=== PATIENT | female | born 1945 | race African-American/Black ===

== ENCOUNTER 2020-01-17 10:54 | Inpatient (IN) | payer MEDICARE, MEDICAID, SELFPAY ==
[2020-01-17] VITALS (90 sets, daily range): BP systolic 101–189; BP diastolic 60–119; PULSE 62–310; RESP 14–39; TEMP 37.4–37.9; O2SAT 82–98; BMI 22.7
--- NOTE | ~2020-01-17 | CT_ITS ---
EXAMINATION: CTA chest PE protocol DATE: 01/17/2020 17:29 INDICATION: Dyspnea. TECHNIQUE: Computed tomography angiography (CTA) of the chest was performed with 100 mL Omnipaque-350 intravenous contrast timed to evaluate the pulmonary arteries. Coronal maximum intensity projection 3D-reconstructions were created by the technologist. Automated exposure control and iterative reconst ruction technique were employed. The dose-length product was 348.81 mGy-cm. COMPARISON: Chest single view 01/17/20, CT abdomen and pelvis 08/24/2017 FINDINGS: There is mild emphysema. There are airspace and groundglass opacities in all lobes. No pleu ral effusion. Cardiomegaly is noted. There are coronary artery calcifications. No pericardial effusio n. There is no pulmonary embolus. There is a 4.6 x 4.1 cm right paratracheal mass. There are gallston es in the gallbladder. There is a moderate-sized sliding hiatal hernia. IMPRESSION: 1. No pulmonary embolus. 2. Diffuse lung disease, consistent with pneumonia. 3. Mild emphysema. 4. Cardiomegaly. 5. 4.6 x 4.1 cm right paratracheal mass. The differential diagnosis includes pathologically enlarged lymph node and bronchogenic cyst. Consider chest MRI without and with contrast. Reviewed, dictated and finalized at location A. R HOUSE CONTROL ROOM OPERATOR IMPRESSION: 1. No pulmonary embolus. 2. Diffuse lung disease, consistent with pneumonia. 3. Mild emphysema. 4. Cardiomegaly. 5. 4.6 x 4.1 cm right paratracheal mass. The differential diagnosis includes pa thologically enlarged lymph node and bronchogenic cyst. Consider chest MRI with out and with contrast.
--- NOTE | ~2020-01-17 | XR_ITS ---
EXAMINATION: XR chest 1V portable DATE: 01/17/2020 11:32 INDICATION: Dyspnea. Hypoxia. COVID 19 positive. TECHNIQUE: frontal view of the chest was obtained. COMPARISON: Chest radiograph dated 08/24/2017 FINDINGS: Patient is rotated towards the right. Diffuse the lateral groundglass and interstitial opacities of b oth lungs. No pleural effusion or pneumothorax. Cardiomegaly. IMPRESSION: 1. Diffuse bilateral lung disease with differential including pneumonia and pulmonary edema. 2. Cardiomegaly. Reviewed, dictated and finalized at location A. HER CRAFTSMAN IMPRESSION: 1. Diffuse bilateral lung disease with differential including pneumonia and pul monary edema. 2. Cardiomegaly.
--- NOTE | ~2020-01-17 | XR_ITS ---
EXAMINATION: XR chest 1V portable INDICATION: Respiratory failure TECHNIQUE: Portable AP chest at 0539 hours COMPARISON: 01/19/2020 FINDINGS: Diffuse opacities persist throughout all lung zones with interval improvement. No pleural e ffusion or pneumothorax is identified. There is stable cardiomegaly. IMPRESSION: 1. Diffuse lung disease with interval improvement, consistent with pneumonia and/or pulmonary edema a nd/or acute respiratory distress syndrome (ARDS). Reviewed, dictated and finalized at location A. D CASE MANAGER IMPRESSION: 1. Diffuse lung disease with interval improvement, consistent with pneumonia an d/or pulmonary edema and/or acute respiratory distress syndrome (ARDS).
--- NOTE | ~2020-01-17 | XR_ITS ---
EXAMINATION: XR chest 1V portable INDICATION: Respiratory failure TECHNIQUE: Portable AP chest at 0540 hours COMPARISON: 01/17/2020 FINDINGS: There are diffuse opacities throughout all lung zones with interval worsening. Stable cardi omegaly is noted. There is no pleural effusion or pneumothorax. IMPRESSION: 1. Diffuse lung disease with interval worsening, consistent with pneumonia and/or pulmonary edema and /or acute respiratory distress syndrome (ARDS). Reviewed, dictated and finalized at location A. TROSLAG WELDING MACHINE OPERATOR IMPRESSION: 1. Diffuse lung disease with interval worsening, consistent with pneumonia and/ or pulmonary edema and/or acute respiratory distress syndrome (ARDS).
--- NOTE | 2020-01-17 10:56 | ECG_ITS ---
Measurements Intervals [place] Rate: 85 P: 41 [place]: 130 QRS: -29 QRSD: 70 T: 74 QT: 363 QTc: 433 Interpretive Statements SINUS RHYTHM VOLTAGE CRITERIA FOR LVH BORDERLINE ST ABNORMALITY- LATERAL LEADS BASELINE ARTIFACT- I, II, III, AVR, AVL, AVF, V1-V6 BORDERLINE ECG Electronically Signed On 01-17-2020 11:20:02 SHAKE MAKER by Ankush Stevens D.O.
--- NOTE | 2020-01-17 11:19 | ED.GENADULT ---
HPI - General Adult General Chief complaint: Weakness Stated complaint: LETHARGY/COVID + Source: RN notes reviewed History of Present Illness HPI narrative: Patient presents emergency department from [facility] via EMS for hypoxia. Patient was diagnosed with COVID-19 on 01/09/2020. Staff noted today that she was weaker today and when they obtained a pulse ox her O2 sats were in the 80 and she was placed on nasal cannula. Patient is currently on 4 L nasal cannula this time is when EMS arrived she was on 2 L nasal cannula and had an O2 saturation of 88%. Patient has been eating less per the staff. Patient is currently awake and alert x2 and denies any complaints at this time. She denies any chest pain abdominal pain nausea vomiting Related Data Allergies Allergy/AdvReac Type Severity Reaction Status Date / Time No Known Allergies Allergy Verified 08/24/17 11:20 Review of Systems Review of Systems: Narrative: Gen.: Denies fevers or chills ENT: Denies congestion Respiratory: See HPI CV: Denies chest pain or palpitations GI: Denies abdominal pain nausea, emesis or diarrhea Musculoskeletal: Denies back pain or muscle pain Neuro: Reports weakness Skin: Denies rash Except as documented, all other systems reviewed and negative [facility] Past Medical History Medical History Anemia Cataracts, bilateral CVA (cerebral vascular accident) Dementia Depression DM (diabetes mellitus) GERD (gastroesophageal reflux disease) H/O: HTN (hypertension) Hemiparesis Hemiplegia History of Botello's esophagus History of GI bleed History of melena Hx: UTI (urinary tract infection) Meningitis Osteomyelitis PVD (peripheral vascular disease) Renal disease Surgical History Surgical History (Updated 03/06/19 @ 21:55 by Skinny Marie) No history of previous surgery Social History Social History (Updated 01/17/20 @ 13:46 by Benny Molina DO) Smoking status: Never smoker Gender identity (if verbalized by the patient): Female Exam Narrative: Exam Narrative: APPEARANCE: No acute distress, nontoxic, resting in bed EYES: EOMI HEENT: Normocephalic, atraumatic, OMM RESPIRATORY: No respiratory distress crackles throughout the bilateral lung becerril no wheezing CARDIOVASCULAR: Regular rate and rhythm without murmurs rubs or gallops. ABDOMINAL: Soft, nontender, nondistended, no rebound or guarding MUSCULOSKELETAl: Moves all extremities. No clubbing, cyanosis or edema. NEURO: Awake and alert x 2. Following commands, speech normal, no focal deficits SKIN:: Warm, dry. No rashes lesions or abrasions PSYCHIATRIC: Normal affect/mood, Course Course Emergency Course: Discussed with AURELIO Conroy for Dr. Ortega presentation work-up. Agrees with admission at this time Discussed with patient and family results of workup and diagnosis. Discussed need for admission. Patient and family understand and agree to current treatment plan Vital Signs Vital signs: Vital Signs Temperature 100.3 F H 01/17/20 10:57 Pulse Rate 85 01/17/20 10:57 Respiratory Rate 24 H 01/17/20 10:57 Blood Pressure 172/79 H 01/17/20 10:57 Pulse Oximetry 96 01/17/20 10:57 Temperature 100.3 F H 01/17/20 10:57 Pulse Rate 85 01/17/20 10:57 Respiratory Rate 24 H 01/17/20 10:57 Blood Pressure 172/79 H 01/17/20 10:57 Pulse Oximetry 96 01/17/20 10:57 Medical Decision Making Vital Signs Vital Signs: Vital Signs Temperature 100.3 F H 01/17/20 10:57 Pulse Rate 85 01/17/20 10:57 Respiratory Rate 24 H 01/17/20 10:57 Blood Pressure 172/79 H 01/17/20 10:57 Pulse Oximetry 96 01/17/20 10:57 Temperature 100.3 F H 01/17/20 10:57 Pulse Rate 85 01/17/20 10:57 Respiratory Rate 24 H 01/17/20 10:57 Blood Pressure 172/79 H 01/17/20 10:57 Pulse Oximetry 96 01/17/20 10:57 Lab Data Result diagrams: 01/17/20 12:27 01/17/20 12:27 Labs: Lab Results
[2020-01-17 11:38] LABS: Add Urine Microscopic? YES; Appearance Urine Cloudy (Clear); Bacteria Urine 4+ /hpf; Bilirubin Urine Negative (Negative); Blood Urine 2+ (Negative); Color Urine Yellow (Yellow); Glucose Urine UA Negative (Negative); Ketones Urine Trace mg/dL (Negative); Leukocyte Esterase Ur Negative LEU/UL (Negative); Mucus Urine Few /lpf; Nitrate Urine Positive (Negative); Protein Urine 3+ mg/dL (Negative); Specific Grav Ur 1.023 (1.001-1.035); Squamous Epithelial Cell Urine Many /hpf (Few); Urobilinogen Urine Negative mg/dL (<2.0); WBC Urine 0-3 /hpf
[2020-01-17 12:43] LABS: Hemoglobin 13.3 g/dL (12.0-15.0); Immature Granulocyte Absolute 0.04 K/mm3 (0.00-0.031); Immature Granulocyte Percent A 0.5 % (0-0.5); Immature Platelet Fraction Pct 12.3 % (0.9-11.2); Lymphocytes Absolute Auto 0.75 K/mm3 (0.9-3.2); Mean Corpuscular HGB Conc 31.7 g/dl (32-36); Mean Corpuscular Hemoglobin 27.8 pg (26-34); Mean Corpuscular Volume 87.9 fl (80-100); Mean Platelet Volume 13.5 fl (7.4-10.4); Monocytes Absolute Auto 0.4 K/mm3 (0.1-0.6); Monocytes Percent Auto 5.7 % (2.6-8.5); Neutrophils Absolute Auto 6.3 K/mm3 (1.3-6.7); Neutrophils Percent Auto 83.8 % (45.5-73.1); Platelet Count Result 128 k/mm3 (150-375); Red Blood Count 4.78 M/mm3 (4.2-5.4); White Blood Count 7.5 K/mm3 (4.5-10.0)
[2020-01-17 12:50] LABS: Lactic Acid Reflex 1.3 mmol/L (0.7-2.1)
[2020-01-17 12:51] LABS: Alanine Aminotransferase 25 U/L (4-35); Albumin Level 3.4 g/dL (3.5-5.1); Alkaline Phosphatase 97 U/L (38-126); Anion Gap 5 mmol/L (8-16); Aspartate Amino Transferase 65 U/L (14-36); Bilirubin,Total 0.4 mg/dL (0.2-1.3); Blood Urea Nitrogen 23 mg/dL (7-17); Carbon Dioxide 31 mmol/L (22-30); Chloride 111 mmol/L (98-107); Estimated CRCL calculation 39 ml/min; Estimated Glomerular Filt Rate > 60; Glucose 139 mg/dL (65-105); Potassium 4.1 mmol/L (3.4-5.0); Sodium 147 mmol/L (137-145)
[2020-01-17 12:53] LABS: INR 0.9; Prothrombin Time 13.1 Seconds (11.1-14.7)
[2020-01-17 12:54] LABS: Partial Thromboplastin Time 31.7 SECONDS (22.3-36.8)
[2020-01-17] MEDS: DEXAMETHASONE SOD PHOS INJ 4 MG/ML VIAL 6 MG IV PUSH (13:48)
--- NOTE | 2020-01-17 16:10 | ECG_ITS ---
Measurements Intervals [place] Rate: 151 P: [place]: 0 QRS: -26 QRSD: 75 T: 135 QT: 248 QTc: 394 Interpretive Statements ATRIAL FIBRILLATION WITH RAPID VENTRICULAR RESPONSE VENTRICULAR PREMATURE COMPLEXES ST-T WAVE ABNORMALITY IN HIGH LATERAL LEADS- CONSIDER ISCHEMIA BASELINE ARTIFACT- II, V2 ABNORMAL ECG Electronically Signed On 01-17-2020 17:48:14 ASTHMA EDUCATOR by Ankush Stevens D.O.
[2020-01-17] MEDS: dilTIAZem HCl INJ 25 MG/5 ML VIAL 5 MG IV PUSH (16:23)
--- NOTE | 2020-01-17 16:53 | PC.NURSE ---
1615 monitor tech showed HR in 140-160s ERP notified. Second EKG ordered. EKG showed Atrial fibrilation with RVR. EDP ordered 5mg of diltiazem IVP and 5mg/hr Diltiazem Drip via verbal order readback. After administration of diltiazem Pt. blood pressure dropped into the low 100s systolic. Per EDP via verbal order readback give a 1L bolus of normal saline. Pt. O2 saturations began to decline into the 80s. Pt. O2 was bumped into 5L via nasal cannula with saturations increasing to 89%. EDP ordered high-flow O2 via nasal cannula.
[2020-01-17] MEDS: SODIUM CHLORIDE 0.9% IV 1,000 ML 999 ML IV CONT (16:57)
[2020-01-17 17:00] LABS: Alveolar/Arterial O2 Gradient 212.7 mmHg; Base Excess ABG -1.1 mEq/l (+/-2.0); Fractional Inspired Oxygen 44 %; HCO3 ABG 23.1 mEq/l (22.0-26.0); Oxygen Content ABG 16.6 %vol (16.0-22.0); Oxygen Saturation ABG 90.9 % (95.0-100.0); Oxyhemoglobin 89.6 % THb (90.0-100.0); PCO2 ABG 37.1 mmHg (35.0-45.0); PO2 ABG 58.7 mmHg (80.0-100.0); PO2 FiO2 Ratio Arterial Blood 1.33 %; Total Hemoglobin 13.2 g/dL (12.0-18.0); pH ABG 7.413 (7.350-7.450)
[2020-01-17 17:01] LABS: Device NASAL CANNULA; Modified Allen's Test Unable to perform; Site Drawn LEFT RADIAL
[2020-01-17 18:11] LABS: Troponin I 0.064 ng/mL (0.000-0.034)
[2020-01-17] MEDS: AMIODARONE 150 MG/D5W 100 ML 150 MG/100 ML BAG 600 MG IV CONT (18:32)
[2020-01-17] MEDS: AMIODARONE 360 MG/D5W 200 ML 360 MG/200 ML BAG 33.33 MG IV CONT ×2 (18:52→23:54)
--- NOTE | 2020-01-17 19:05 | ADMGEN ---
This patient, Maritza Parson, was admitted to Intensive Care Unit-3. Patient/family oriented to hospital policies and general routines including ID bracelet, bed and alarms, visiting hours, pain management, procedures, bathroom and other care routines, personal items, smoking policy, room service/diet, and visiting hours. Information on how to activate the Rapid Response Team has been discussed. Patient/Family are encouraged to report perceived risks to care and to ask questions if they do not understand what they are told or what they should do.
--- NOTE | 2020-01-17 19:14 | PM.IMHP ---
H&P: HPI History of Present Illness Date/Time: 01/17/20 19:14 Chief complaint: acute respiratory failure with hypoxia,covid +,uti Narrative: Maritza Parson is a 74 year old female from residential with past medical history of dementia, history of CVA affecting right-sided body, dysphagia, type 2 diabetes, hypertension, CAD with recent diagnosis of COVID-19 on 01/09/2020 presents to ED brought in by EMS for hypoxia. she was found to have O2 saturation 80%. the residential she has has many cases of COVID-19. EMS had her on 2 L oxygen with saturation 88%, increased to 4 L in the ED. patient is unable to communicate she just mumbles , unclear baseline however she has diagnosis of dementia. In the ED: patient oxygen requirements went up to 4 L nasal cannula and patient was admitted for COVID-19 pneumonia. Patient developed AFib with RVR rate 151 While in the ER was given Cardizem drip and switched to IMU bed. Her heart rate continued to be elevated while on Cardizem and Cardiology Dr. Buenrostro was consulted to switch to amiodarone. Review of Systems Review of Systems: ROS unobtainable: Yes unobtainable due to medical condition and unobtainable due to mental status PMFSH Past Medical History Medical History Anemia Cataracts, bilateral CVA (cerebral vascular accident) Dementia Depression DM (diabetes mellitus) GERD (gastroesophageal reflux disease) H/O: HTN (hypertension) Hemiparesis Hemiplegia History of Botello's esophagus History of GI bleed History of melena Hx: UTI (urinary tract infection) Meningitis Osteomyelitis PVD (peripheral vascular disease) Renal disease Surgical History Surgical History No history of previous surgery Social History Social History Smoking status: Never smoker Alcohol intake: never Substance use: never Gender identity (if verbalized by the patient): Female Spiritual care concerns: No Meds Home Medications and Allergies Home Medications Medication Instructions Recorded Confirmed Type acetaminophen 650 mg PO Q4H PRN 01/17/20 01/17/20 History calcium carbonate-vitamin D3 1 tablet PO BID 01/17/20 01/17/20 History [Calcium 600 + D(3)] ferrous sulfate [iron] 325 mg PO BID 01/17/20 01/17/20 History hyoscyamine 0.125 mg PO Q4H PRN 01/17/20 01/17/20 History insulin glargine [Lantus U-100 20 unit SUBCUT HS 01/17/20 01/17/20 History Insulin] linagliptin [Tradjenta] 5 mg PO DAILY 01/17/20 01/17/20 History memantine 28 mg PO HS 01/17/20 01/17/20 History metformin 500 mg PO DAILY 01/17/20 01/17/20 History multivitamin with minerals 1 cap PO DAILY 01/17/20 01/17/20 History [Multi-Vitamin W/Minerals] ondansetron HCl [Zofran] 4 mg PO Q6H PRN 01/17/20 01/17/20 History oseltamivir 75 mg PO DAILY PRN 01/17/20 01/17/20 History pantoprazole 40 mg PO Q12H 01/17/20 01/17/20 History rivastigmine tartrate 4.5 mg PO Q12H 01/17/20 01/17/20 History senna-docusate sodium [Senna Plus 2 tablet PO Q12H 01/17/20 01/17/20 History (senna-docusate)] Allergies Allergy/AdvReac Type Severity Reaction Status Date / Time No Known Allergies Allergy Verified 08/24/17 11:20 Vital Signs Vital Signs - 24 hr 01/17/20 10:50 01/17/20 10:57 01/17/20 11:03 Temperature 37.9 C H Pulse Rate 85 85 Respiratory Rate 24 H 14 Blood Pressure 172/79 H Pulse Oximetry 98 96 96 01/17/20 11:04 01/17/20 11:15 01/17/20 11:16 Temperature Pulse Rate 84 93 Respiratory Rate 20 20 20 Blood Pressure 172/79 H 179/81 H Pulse Oximetry 96 94 96 01/17/20 11:30 01/17/20 11:31 01/17/20 11:48 Temperature Pulse Rate 84 82 82 Respiratory Rate 21 H 23 H 22 H Blood Pressure 189/81 H 178/82 H Pulse Oximetry 96 97 01/17/20 11:49 01/17/20 12:00 01/17/20 12:01 Temperature Pulse Rate 81 82 80 Respiratory Ra
--- NOTE | 2020-01-17 19:24 | PC.NURSE ---
This patient, Maritza Parson, was admitted to Intensive Care Unit-3. Patient/family oriented to hospital policies and general routines including ID bracelet, bed and alarms, visiting hours, pain management, procedures, bathroom and other care routines, personal items, smoking policy, room service/diet, and visiting hours. Information on how to activate the Rapid Response Team has been discussed. Patient/Family are encouraged to report perceived risks to care and to ask questions if they do not understand what they are told or what they should do. Report received from CASSIE Coto @ [id number]
[2020-01-17 20:43] LABS: Base Excess ABG -3.4 mEq/l (+/-2.0); Carboxyhemoglobin 0.3 % THb (0-2.0); Fractional Inspired Oxygen 100 %; HCO3 ABG 20.8 mEq/l (22.0-26.0); Methemoglobin ABG 0.4 %THb (0-1.5); Oxygen Content ABG 17.2 %vol (16.0-22.0); Oxygen Saturation ABG 92.8 % (95.0-100.0); Oxyhemoglobin 91.2 % THb (90.0-100.0); PCO2 ABG 35.1 mmHg (35.0-45.0); PO2 ABG 64.9 mmHg (80.0-100.0); PO2 FiO2 Ratio Arterial Blood 0.65 %; Reduced Hemoglobin 8.1 %THb (0-5.0); Total Hemoglobin 13.4 g/dL (12.0-18.0); pH ABG 7.391 (7.350-7.450)
[2020-01-17 20:44] LABS: Site Drawn LEFT RADIAL
[2020-01-17 20:45] LABS: Device HIGH FLOW THERAPY; Modified Allen's Test Pass
[2020-01-17 23:42] LABS: NT Pro B Type Natriuretic Pept 1860 PG/ML (5-100); Troponin I 0.822 ng/mL (0.000-0.034)
[2020-01-18] VITALS (27 sets, daily range): BP systolic 111–179; BP diastolic 64–115; PULSE 90–135; RESP 18–47; TEMP 36.1–36.7; O2SAT 27–97; BMI 22.7
[2020-01-18] MEDS: REMDESIVIR 200 MG/NS 250 ML 200 MG/250 ML BAG 250 MG IVPB (00:52)
[2020-01-18 04:43] LABS: Basophils Percent Auto 0.1 % (0.2-1.2); Hematocrit 42.2 % (37.0-47.0); Hemoglobin 13.5 g/dL (12.0-15.0); Immature Granulocyte Absolute 0.03 K/mm3 (0.00-0.031); Immature Granulocyte Percent A 0.4 % (0-0.5); Lymphocytes Absolute Auto 0.72 K/mm3 (0.9-3.2); Lymphocytes Percent Auto 9.6 % (18.3-44.2); Mean Corpuscular Hemoglobin 28.1 pg (26-34); Mean Corpuscular Volume 87.9 fl (80-100); Mean Platelet Volume 13.3 fl (7.4-10.4); Monocytes Absolute Auto 0.3 K/mm3 (0.1-0.6); Monocytes Percent Auto 4.3 % (2.6-8.5); Neutrophils Absolute Auto 6.4 K/mm3 (1.3-6.7); Neutrophils Percent Auto 85.6 % (45.5-73.1); Platelet Count Result 148 k/mm3 (150-375); Red Cell Distribution Width 15.2 % (11.5-14.5); White Blood Count 7.5 K/mm3 (4.5-10.0)
[2020-01-18 04:55] LABS: Alanine Aminotransferase 22 U/L (4-35); Anion Gap 9 mmol/L (8-16); Blood Urea Nitrogen 19 mg/dL (7-17); CRP 8.6 mg/dL (<1.0); Calcium 8.4 mg/dL (8.4-10.2); Carbon Dioxide 25 mmol/L (22-30); Chloride 112 mmol/L (98-107); Estimated CRCL calculation 35 ml/min; Estimated Glomerular Filt Rate > 60; Glucose 328 mg/dL (65-105); Lactate Dehydrogenase 1278 U/L (313-618); Potassium 3.9 mmol/L (3.4-5.0); Sodium 146 mmol/L (137-145)
[2020-01-18 05:01] LABS: Hemoglobin A1C 6.5 % (<5.7)
[2020-01-18] MEDS: AMIODARONE 360 MG/D5W 200 ML 360 MG/200 ML BAG 33.33 MG IV CONT ×3 (06:00→23:30)
[2020-01-18] MEDS: INSULIN ASPART (*BKC) 100 UNITS/ML SUB-Q ×4 (06:01→23:28)
[2020-01-18] MEDS: ALBUTEROL SULFATE (*SP) AEROSOL 1 PUFF 2 PUFF INHALATION (08:20)
[2020-01-18] MEDS: PANTOPRAZOLE SODIUM IV 40 MG VIAL IV PUSH (08:58)
[2020-01-18] MEDS: ENOXAPARIN 60 MG/0.6 ML SYRINGE SUB-Q ×2 (08:58→20:08)
[2020-01-18] MEDS: DEXAMETHASONE SOD PHOS INJ 4 MG/ML VIAL 6 MG IV PUSH (09:11)
[2020-01-18] MEDS: FUROSEMIDE INJ 40 MG/4 ML VIAL IV PUSH (09:11)
--- NOTE | 2020-01-18 10:00 | PM.CNCAR ---
Assessment and Plan Assessment and plan (1) COVID-19: Code(s): U07.1 - COVID-19 Status: Acute Assessment and Plan: Per ICU team (2) Acute respiratory failure with hypoxia: Code(s): J96.01 - Acute respiratory failure with hypoxia Status: Acute Assessment and Plan: Secondary Coronavirus (3) Atrial fibrillation with RVR: Code(s): I48.91 - Unspecified atrial fibrillation Status: Acute Assessment and Plan: Continue amiodarone drip. Metoprolol 5 mg IV x1 and p.r.n. q.4 hours as needed. She is on full-dose enoxaparin which I also agree with for now 2D echocardiogram Doppler (4) Dementia: Code(s): F03.90 - Unspecified dementia without behavioral disturbance Status: Acute History of Present Illness History of Present Illness Consult date/time: 01/18/20 10:00 Requesting physician: Benny Molina DO Consult reason: atrial fibrillation Reason For Visit: acute respiratory failure with hypoxia,covid +,uti Narrative: Date of service: 01/18/2020 Reason for consultation: Atrial fibrillation History patient is a 74-[facility]-old female [facility] who has a history of stroke, dementia, dysphagia, hypertension with diabetes, CAD and was diagnosed with Coronavirus on 01/09/2020. She presents to the hospital because of hypoxia with O2 saturations of 80%. While in the emergency room she went into atrial fibrillation with rapid ventricular response. She was started on diltiazem at 1st and is now on amiodarone. Heart rate is between 101 120. She remains dyspneic but not intubated to this point. Review of Systems Review of Systems: All systems reviewed & are unremarkable except as noted in HPI and below Constitutional: Constitutional: Reports weakness ENT: Denies epistaxis Cardiovascular: Cardiovascular: Denies chest pain Respiratory: Respiratory: Reports dyspnea Gastrointestinal: Gastrointestinal: Denies vomiting Hematologic/Lymphatic: Hematologic/Lymphatic: Denies easy bleeding PMFSH Past Medical History Medical History Anemia Cataracts, bilateral CVA (cerebral vascular accident) Dementia Depression DM (diabetes mellitus) GERD (gastroesophageal reflux disease) H/O: HTN (hypertension) Hemiparesis Hemiplegia History of Botello's esophagus History of GI bleed History of melena Hx: UTI (urinary tract infection) Meningitis Osteomyelitis PVD (peripheral vascular disease) Renal disease Surgical History Surgical History No history of previous surgery Social History Social History Smoking status: Never smoker Alcohol intake: never Substance use: never Gender identity (if verbalized by the patient): Female Spiritual care concerns: No Meds Home Medications and Allergies Home Medications Medication Instructions Recorded Confirmed Type acetaminophen 650 mg PO Q4H PRN 01/17/20 01/17/20 History calcium carbonate-vitamin D3 1 tablet PO BID 01/17/20 01/17/20 History [Calcium 600 + D(3)] ferrous sulfate [iron] 325 mg PO BID 01/17/20 01/17/20 History hyoscyamine 0.125 mg PO Q4H PRN 01/17/20 01/17/20 History insulin glargine [Lantus U-100 20 unit SUBCUT HS 01/17/20 01/17/20 History Insulin] linagliptin [Tradjenta] 5 mg PO DAILY 01/17/20 01/17/20 History memantine 28 mg PO HS 01/17/20 01/17/20 History metformin 500 mg PO DAILY 01/17/20 01/17/20 History multivitamin with minerals 1 cap PO DAILY 01/17/20 01/17/20 History [Multi-Vitamin W/Minerals] ondansetron HCl [Zofran] 4 mg PO Q6H PRN 01/17/20 01/17/20 History oseltamivir 75 mg PO DAILY PRN 01/17/20 01/17/20 History pantoprazole 40 mg PO Q12H 01/17/20 01/17/20 History rivastigmine tartrate 4.5 mg PO Q12H 01/17/20 01/17/20 History senna-docusate sodium [Senna Plus 2 tablet PO Q12H 01/17/20 01/17/20 Histo
--- NOTE | 2020-01-18 10:40 | WPDCNINT ---
Assessment and Plan Assessment and plan (1) Acute respiratory failure with hypoxia: Code(s): J96.01 - Acute respiratory failure with hypoxia Status: Acute Assessment and Plan: Acute Respiratory failure secondary to COVID-19 pneumonia, ? pulmonary edema - SARS-CoV-2 PCR positive Patient is in Airborne, Droplet and Contact Isolation On dexamethasone, remdesivir 1 unit convalscent plasma 01/17 Lasix IV after plasma Continue antibiotics for empiric bacterial coverage monitor inflammatory markers bronchodilators CTA Chest IMPRESSION: 1. No pulmonary embolus. 2. Diffuse lung disease, consistent with pneumonia. 3. Mild emphysema. 4. Cardiomegaly. 5. 4.6 x 4.1 cm right paratracheal mass. The differential diagnosis includes pathologically enlarged lymph node and bronchogenic cyst. Consider chest MRI without and with contrast. (2) COVID-19: Code(s): U07.1 - COVID-19 Status: Acute Assessment and Plan: see above (3) Atrial fibrillation with RVR: Code(s): I48.91 - Unspecified atrial fibrillation Status: Acute Assessment and Plan: Continue amiodarone drip. 2D echocardiogram Doppler added p.r.n. Lopressor patient seen by Cardio (4) Dementia: Code(s): F03.90 - Unspecified dementia without behavioral disturbance Status: Acute Assessment and Plan: Namenda on hold at this time (5) DM (diabetes mellitus): Code(s): E11.9 - Type 2 diabetes mellitus without complications Status: Acute Assessment and Plan: sliding scale (6) NSTEMI (non-ST elevated myocardial infarction): Code(s): I21.4 - Non-ST elevation (NSTEMI) myocardial infarction Status: Acute Assessment and Plan: type 2 non STEMI secondary to respiratory failure and atrial fibrillation with RVR patient seen by Cardiology echo on Lovenox add aspirin Additional Plan Diet: NPO, speech eval DVT prophylaxis: Lovenox 40 mg b.i.d. GI prophylaxis: Protonix IV Code status: Full code, I called patient's POA who is her son Scout Lim. I left a voicemail on his phone. Total Critical Care Time - 35 minutes Due to a high probability of clinically significant, life threatening deterioration, the patient required my highest level of preparedness to intervene emergently and I personally spent this critical care time directly and personally managing the patient. This critical care time included obtaining a history; examining the patient; pulse oximetry; ordering and review of studies; arranging urgent treatment with development of a management plan; evaluation of patient's response to treatment; frequent reassessment; and discussions with other providers. It was exclusive of separately billable procedures and treating other patients and teaching time. Please see Assessment and Plan section and the rest of the note for further information on patient assessment and treatment Motel Keeper Consult Note Consult date: 01/18/20 Time Seen: 08:00 HPI: Maritza Parson is a 74 [facility] old female from [facility] with past medical history of dementia, history of CVA affecting right-sided body, dysphagia, type 2 diabetes, hypertension, CAD with recent diagnosis of COVID-19 on 01/09/2020 presents to ED brought in by EMS for hypoxia. she was found to have O2 saturation 80%. the [facility] she has has many cases of COVID-19. patient was unable to provide any meaningful history due to her dementia. Was found to be in AFib with RVR. Started on Cardizem infusion but it did not hence after cardiology consultation she was switched to amiodarone. over the course of her ER stay her hypoxia worsened and she required high-flow nasal cannula. Admitted to ICU for further evaluation management this morning patient continues to be on high-flow nasal cannula along with a non-rebreather mask. She is on 60 L flow and 100% FiO2 on the high-flow. Her nasal cannula keeps on coming out and pa
[2020-01-18] MEDS: METOPROLOL TARTRATE INJ 5 MG/5 ML VIAL IV PUSH ×2 (11:47→20:32)
[2020-01-18 12:25] LABS: Glucose Point of Care 237 (65-105)
--- NOTE | 2020-01-18 13:23 | PC.NURSE ---
Spoke to patients sharron Butterfield who states he wishes for patient to be a DNR/DNI at this time, MD Caldera made aware.
--- NOTE | 2020-01-18 13:26 | PCSTNOTE ---
Please refer to the Bedside Swallow Evaluation in the EMR. Please note, silent aspiration cannot be ruled out at bedside.
--- NOTE | 2020-01-18 13:43 | PM.EVENT ---
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 For discussing with physicians there and respiratory therapist and doing video call with patient with assistance of a nurse, he has requested the patient be made DNR DNI and not be intubated for respiratory failure or CPR performed in case of cardiac arrest.
--- NOTE | 2020-01-18 14:17 | PM.IMPN ---
Progress Note: A&P Additional Plan 1COVID-19 pneumonia / Acute hypoxic respiratory failure - COVID-19 pneumonia causing significant hypoxia triggering AFib with RVR. - Code status was changed to DNR/DNI after a discussion by the critical care physician with the patient's son. - CTA negative for PE, consistent with diffuse lung disease COVID-19 - Starting remdesivir, dexamethasone, convalescent plasma - MDI albuterol scheduled - patient is in airvo 60 L will keep maxed out to see if that will help with the heart rate - goal keep O2 supplemental oxygen greater than 90% - continue amiodarone drip for AFib with RVR 2 elevated troponin - likely supply demand secondary to severe hypoxia from COVID-19 pneumonia. 3 dementia, history of CVA - history of dysphagia from CVA, patient is too critically ill to tolerate p.o. - patient also has significant dementia unable to follow commands - we will make NPO and have speech evaluate - patient is on rivastigmine, memantine 4 other chronic conditions -holding home meds while NPO - type 2 diabetes: Metformin, Tradjenta, Lantus - chronic anemia: Holding home ferrous sulfate Diet: NPO, speech eval DVT prophylaxis: Lovenox 40 mg b.i.d. GI prophylaxis: Protonix IV Code status: DNR/DNI Disposition: ICU, prognosis guarded Subjective Date/time seen: Tachypneic but not in severe distress, she denies pain. 01/18/20 14:17 Exam Narrative: Exam Narrative: General: Pt is old cachectic , alert and awake Lungs/Chest: Trachea central Clear BS B/L, No crackles or wheezing. tachypneic but no respiratory distress Cardiac: RRR. Normal S1 S2. No murmurs Abdomen: Normal bowel sounds.. Soft. NT. ND. Extremities: No clubbing, cyanosis or edema. Warm : Samaniego in place Neurologic: . Moves all 4 extremities , no obvious focal deficits , does not follow commands. Skin: No Rash Objective Data Vital Signs Vital Signs: Vital Signs - 24 hr 01/17/20 14:18 01/17/20 14:30 01/17/20 14:31 Temperature 99.3 F Pulse Rate 69 71 Respiratory Rate 23 H 25 H Blood Pressure 148/68 H Pulse Oximetry 97 97 01/17/20 14:45 01/17/20 14:46 01/17/20 14:47 Temperature Pulse Rate 74 74 73 Respiratory Rate 23 H 18 24 H Blood Pressure 148/68 H Pulse Oximetry 98 95 96 01/17/20 15:00 01/17/20 15:01 01/17/20 15:15 Temperature Pulse Rate 65 66 64 Respiratory Rate 23 H 23 H 22 H Blood Pressure 134/67 Pulse Oximetry 97 96 97 01/17/20 15:16 01/17/20 15:30 01/17/20 15:31 Temperature Pulse Rate 64 65 64 Respiratory Rate 22 H 25 H 22 H Blood Pressure 138/60 150/63 H Pulse Oximetry 98 97 98 01/17/20 15:32 01/17/20 15:45 01/17/20 15:46 Temperature Pulse Rate 64 62 63 Respiratory Rate 21 H 21 H 27 H Blood Pressure 140/63 Pulse Oximetry 98 96 97 01/17/20 16:00 01/17/20 16:01 01/17/20 16:15 Temperature Pulse Rate 63 66 156 H Respiratory Rate 24 H 25 H 32 H Blood Pressure 134/70 Pulse Oximetry 98 98 01/17/20 16:16 01/17/20 16:23 01/17/20 16:30 Temperature Pulse Rate 155 H 162 H 137 H Respiratory Rate 24 H 28 H Blood Pressure 158/90 H 158/90 H Pulse Oximetry 82 L 01/17/20 16:34 01/17/20 16:45 01/17/20 16:46 Temperature Pulse Rate 138 H 143 H 147 H Respiratory Rate 20 29 H 22 H Blood Pressure 101/76 117/87 Pulse Oximetry 83 L 91 91 01/17/20 16:50 01/17/20 17:00 01/17/20 17:01 Temperature Pulse Rate 105 H 148 H 141 H Respiratory Rate 24 H 29 H 23 H Blood Pressure 122/96 H Pulse Oximetry 91 86 L 01/17/20 17:04 01/17/20 17:33 01/17/20 17:34 Temperature Pulse Rate 144 H 146 H 149 H Respiratory Rate 24 H 27 H 29 H Blood Pressure 149/75 H Pulse Oximetry 93 90 94 01/17/20 17:45 01/17/20 17:46 01/17/20 17:53 Temperature Pulse Rate 149 H 139 H 150 H Respiratory Rate 39 H 28 H 28 H Blood Pressure 115/70 114/78 128/86 Pulse Oximetry 90 01/17/20 18:00 01/17/20 18:01 01/17/20 18:02 Temperature Puls
[2020-01-18] MEDS: ASPIRIN 300 MG SUPPOSITORY RECTAL (14:34)
[2020-01-18 17:38] LABS: Glucose Point of Care 230 (65-105)
[2020-01-18] MEDS: REMDESIVIR 100 MG/NS 250 ML 100 MG/250 ML BAG 250 MG IVPB (23:23)
[2020-01-18 23:48] LABS: Glucose Point of Care 223 (65-105)
[2020-01-19] VITALS (23 sets, daily range): BP systolic 122–177; BP diastolic 77–122; PULSE 94–126; RESP 27–45; TEMP 36.3–36.6; O2SAT 90–97
[2020-01-19] MEDS: AMIODARONE 360 MG/D5W 200 ML 360 MG/200 ML BAG 33.33 MG IV CONT (04:50)
[2020-01-19 05:34] LABS: Alanine Aminotransferase 20 U/L (4-35); Albumin Level 2.8 g/dL (3.5-5.1); Alkaline Phosphatase 105 U/L (38-126); Anion Gap 6 mmol/L (8-16); Aspartate Amino Transferase 53 U/L (14-36); Bilirubin,Total 0.3 mg/dL (0.2-1.3); Blood Urea Nitrogen 29 mg/dL (7-17); Calcium 8.6 mg/dL (8.4-10.2); Carbon Dioxide 28 mmol/L (22-30); Chloride 112 mmol/L (98-107); Estimated CRCL calculation 32 ml/min; Estimated Glomerular Filt Rate 59; Glucose 217 mg/dL (65-105); Lactate Dehydrogenase 1438 U/L (313-618); Magnesium 2.1 mg/dL (1.6-2.3); Potassium 3.5 mmol/L (3.4-5.0); Sodium 146 mmol/L (137-145)
[2020-01-19 05:42] LABS: NT Pro B Type Natriuretic Pept 7950 PG/ML (5-100)
[2020-01-19 05:43] LABS: Hematocrit 38.7 % (37.0-47.0); Hemoglobin 12.8 g/dL (12.0-15.0); Immature Platelet Fraction Pct 11.8 % (0.9-11.2); Mean Corpuscular HGB Conc 33.1 g/dl (32-36); Mean Corpuscular Hemoglobin 28.6 pg (26-34); Mean Corpuscular Volume 86.4 fl (80-100); Mean Platelet Volume 13.3 fl (7.4-10.4); Platelet Count Result 191 k/mm3 (150-375); Red Blood Count 4.48 M/mm3 (4.2-5.4); White Blood Count 9.9 K/mm3 (4.5-10.0)
[2020-01-19] MEDS: INSULIN ASPART (*BKC) 100 UNITS/ML SUB-Q ×4 (06:05→23:31)
[2020-01-19] MEDS: ASPIRIN 300 MG SUPPOSITORY RECTAL (07:43)
[2020-01-19] MEDS: PANTOPRAZOLE SODIUM IV 40 MG VIAL IV PUSH (07:43)
[2020-01-19] MEDS: ENOXAPARIN 60 MG/0.6 ML SYRINGE SUB-Q ×2 (07:43→21:08)
[2020-01-19] MEDS: DEXAMETHASONE SOD PHOS INJ 4 MG/ML VIAL 6 MG IV PUSH (07:44)
--- NOTE | 2020-01-19 10:57 | WPDINTPN ---
Progress Note: A&P Assessment and Plan (1) Acute respiratory failure with hypoxia: Code(s): J96.01 - Acute respiratory failure with hypoxia Status: Acute Assessment and Plan: Acute Respiratory failure secondary to COVID-19 pneumonia, ? pulmonary edema - SARS-CoV-2 PCR positive Patient is in Airborne, Droplet and Contact Isolation On dexamethasone, remdesivir 1 unit convalscent plasma 01/17 Lasix IV after plasma was given. patient's BNP is elevated but she appears to be intravascularly volume depleted hence will hold any Lasix at this time. will consider giving small amount of fluid to prevent dehydration Continue antibiotics for empiric bacterial coverage monitor inflammatory markers bronchodilators CTA Chest IMPRESSION: 1. No pulmonary embolus. 2. Diffuse lung disease, consistent with pneumonia. 3. Mild emphysema. 4. Cardiomegaly. 5. 4.6 x 4.1 cm right paratracheal mass. The differential diagnosis includes pathologically enlarged lymph node and bronchogenic cyst. Consider chest MRI without and with contrast. (2) COVID-19: Code(s): U07.1 - COVID-19 Status: Acute Assessment and Plan: see above (3) Atrial fibrillation with RVR: Code(s): I48.91 - Unspecified atrial fibrillation Status: Acute Assessment and Plan: Continue amiodarone drip Will decrease rate 2.5 2D echocardiogram Doppler is pending continue p.r.n. Lopressor patient seen by Cardio (4) Dementia: Code(s): F03.90 - Unspecified dementia without behavioral disturbance Status: Acute Assessment and Plan: Namenda on hold at this time (5) DM (diabetes mellitus): Code(s): E11.9 - Type 2 diabetes mellitus without complications Status: Acute Assessment and Plan: sliding scale (6) NSTEMI (non-ST elevated myocardial infarction): Code(s): I21.4 - Non-ST elevation (NSTEMI) myocardial infarction Status: Acute Assessment and Plan: type 2 non STEMI secondary to respiratory failure and atrial fibrillation with RVR patient seen by Cardiology echo pending on Lovenox continue aspirin Additional Plan Diet: NPO, repeat speech eval today as patient did not do well yesterday DVT prophylaxis: Lovenox 40 mg b.i.d. GI prophylaxis: Protonix IV Code status: patient is DNR DNI as per patient's POA who is her son Scout Lim. Total Critical Care Time - 30 minutes Due to a high probability of clinically significant, life threatening deterioration, the patient required my highest level of preparedness to intervene emergently and I personally spent this critical care time directly and personally managing the patient. This critical care time included obtaining a history; examining the patient; pulse oximetry; ordering and review of studies; arranging urgent treatment with development of a management plan; evaluation of patient's response to treatment; frequent reassessment; and discussions with other providers. It was exclusive of separately billable procedures and treating other patients and teaching time. Please see Assessment and Plan section and the rest of the note for further information on patient assessment and treatment Subjective Date/time seen: 01/19/20 10:57 Overnight events reviewed. Afebrile Continues to be on High-flow nasal cannula with 100% FiO2 and 60 L flow along with a non-rebreather mask she is awake but does not follow commands or answering questions. when stimulated she mumbles incoherent words Continues to be on amiodarone infusion Vitals acceptable Review of Systems Review of Systems: ROS unobtainable: Yes unobtainable due to medical condition Exam Narrative: Exam Narrative: General: Pt is old cachectic frail female who ist awake Lungs/Chest: Trachea central Clear BS B/L, No crackles or wheezing. tachypneic but no respiratory distress Cardiac: RRR. Normal S1 S2. No murmurs Circulation: Pedal pulses are intact
--- NOTE | 2020-01-19 10:57 | PCDIET ---
Nutrition Follow-Up Complete: Nutrition Diagnosis: Inadequate oral intake related to altered mental status as evidenced by NPO diet with [employer] consult. Nutrition Goal: Patient to meet estimated nutritional needs. Goal not met. [employer] recommended NPO on 01/18/20. MD re-consulted [employer] today. If unable to safely advance diet and aggressive nutritional therapy is desired, recommend the following: Glucerna 1.2 at goal of 50mL/hr x 22 hours/day for 1320kcal, 66g protein and 885mL free water. Suggest 30mL water flush every 4 hours. Last recorded weight is 57.1 kg which is decreased from last review. -I/O. Bowel Motility: No documented BM as of yet. Labs Reviewed: BUN (29), Cr (1.1), Na (146), Alb (2.8), Cl (112) Meds Noted: Rocephin, Albuterol, Protonix, Remdesivir, Decadron, Novolog Additional Notes: No documented skin breakdown. Will continue to monitor with same goal. Nutrition Monitoring and Evaluation: Follow up every 3 days.
--- NOTE | 2020-01-19 11:55 | PM.PNCARD ---
Progress Note: A&P Assessment and Plan (1) COVID-19: Code(s): U07.1 - COVID-19 Status: Acute Assessment and Plan: Per ICU team (2) Acute respiratory failure with hypoxia: Code(s): J96.01 - Acute respiratory failure with hypoxia Status: Acute Assessment and Plan: Secondary Coronavirus (3) Atrial fibrillation with RVR: Code(s): I48.91 - Unspecified atrial fibrillation Status: Acute Assessment and Plan: Continue amiodarone drip. p.r.n. IV metoprolol. She is on full-dose enoxaparin which I also agree with for now 2D echocardiogram Doppler is pending (4) Dementia: Code(s): F03.90 - Unspecified dementia without behavioral disturbance Status: Acute (5) NSTEMI (non-ST elevated myocardial infarction): Code(s): I21.4 - Non-ST elevation (NSTEMI) myocardial infarction Status: Acute Assessment and Plan: most likely Related to a type 2 infarction from underlying Coronavirus and atrial fibrillation with rapid ventricular response Subjective Date/time seen: 01/19/20 11:55 Interval history: 74-year-old admitted with respiratory failure, COVID positive. Atrial fibrillation noted in ER Date of service 01/19/2020: Remains in atrial fibrillation heart rate is better controlled. Heart rate is in the low 100s. Review of Systems Review of Systems: All systems reviewed & are unremarkable except as noted in HPI and below Constitutional: Constitutional: Reports weakness ENT: Denies epistaxis Cardiovascular: Cardiovascular: Denies chest pain and Reports dyspnea Respiratory: Respiratory: Reports dyspnea Gastrointestinal: Gastrointestinal: Denies vomiting Neurologic: Reports weakness Hematologic/Lymphatic: Hematologic/Lymphatic: Denies easy bleeding Exam Narrative: Exam Narrative: Patient has a non-rebreather on. Appears uncomfortable Const: General: in distress and uncomfortable HENMT: Other: Non-rebreather on face Resp: Other: Increased respiratory effort Cardio: Rate: tachycardic Rhythm: abnormal rhythm irregularly irregular Skin: General skin exam: normal color Objective Data Vital Signs Vital Signs: Vital Signs - 24 hr 01/18/20 12:00 01/18/20 12:21 01/18/20 14:00 Temperature Pulse Rate 109 H 90 105 H Respiratory Rate 28 H Blood Pressure 151/81 H 144/73 H Pulse Oximetry 96 01/18/20 15:45 01/18/20 16:00 01/18/20 18:00 Temperature 36.7 C Pulse Rate 107 H 109 H 106 H Respiratory Rate 41 H 31 H 37 H Blood Pressure 142/84 H 165/86 H Pulse Oximetry 93 94 95 01/18/20 20:00 01/18/20 20:01 01/18/20 20:32 Temperature 36.4 C L Pulse Rate 134 H 121 H 130 H Respiratory Rate 27 H 27 H Blood Pressure 166/115 H Pulse Oximetry 27 L 97 01/18/20 20:39 01/18/20 22:00 01/18/20 23:30 Temperature Pulse Rate 110 H 110 H 115 H Respiratory Rate 39 H 32 H Blood Pressure 158/91 H 143/94 H Pulse Oximetry 95 97 01/18/20 23:40 01/19/20 00:00 01/19/20 02:00 Temperature 36.6 C Pulse Rate 115 H 109 H 105 H Respiratory Rate 32 H 35 H 32 H Blood Pressure 150/80 H 139/86 Pulse Oximetry 97 94 96 01/19/20 03:26 01/19/20 04:00 01/19/20 04:50 Temperature 36.5 C Pulse Rate 104 H 100 114 H Respiratory Rate 33 H 36 H Blood Pressure 151/82 H 173/94 H Pulse Oximetry 94 93 01/19/20 06:00 01/19/20 07:44 01/19/20 07:51 Temperature Pulse Rate 114 H 111 H 112 H Respiratory Rate 32 H 34 H Blood Pressure 122/85 157/98 H Pulse Oximetry 91 93 01/19/20 08:00 01/19/20 09:57 01/19/20 10:00 Temperature 36.4 C Pulse Rate 110 H 104 H 113 H Respiratory Rate 38 H 37 H Blood Pressure 144/88 H 152/94 H Pulse Oximetry 91 90 01/19/20 11:30 Temperature Pulse Rate 117 H Respiratory Rate 45 H Blood Pressure Pulse Oximetry 95 Intake/Output Intake/Output: Intake & Output 01/16/20 01/17/20 01/18/20 01/19/20 23:59 23:59 23:59 23:59 Intake Total 1262 520 250 Output
--- NOTE | 2020-01-19 12:02 | PCSTNOTE ---
Please refer to the bedside swallow evaluation in the EMR.
[2020-01-19] MEDS: METOPROLOL TARTRATE INJ 5 MG/5 ML VIAL IV PUSH ×2 (12:14→18:08)
[2020-01-19 12:52] LABS: Glucose Point of Care 252 (65-105)
[2020-01-19] MEDS: DEXTROSE 5% IN WATER 500 ML 50 ML IV CONT (13:41)
[2020-01-19] MEDS: AMIODARONE 360 MG/D5W 200 ML 360 MG/200 ML BAG 16.67 MG IV CONT (13:45)
--- NOTE | 2020-01-19 15:52 | PM.IMPN ---
Progress Note: A&P Additional Plan 1. COVID-19 pneumonia / Acute hypoxic respiratory failure - COVID-19 pneumonia causing significant hypoxia triggering AFib with RVR. - Code status was changed to DNR/DNI after a discussion by the critical care physician with the patient's son. - CTA negative for PE, consistent with diffuse lung disease COVID-19 - Started on remdesivir, dexamethasone, convalescent plasma, received laisx after plasma. - On empiric antibiotics for possible concomitant PNA. 2 elevated troponin - likely supply demand secondary to severe hypoxia from COVID-19 pneumonia. 3 dementia, history of CVA - history of dysphagia from CVA and dementia. - patient also has significant dementia unable to follow commands 4 other chronic conditions -holding home meds while NPO - type 2 diabetes: Metformin, Tradjenta, Lantus - chronic anemia: Holding home ferrous sulfate DVT prophylaxis: Lovenox 40 mg b.i.d. GI prophylaxis: Protonix IV Code status: DNR/DNI Disposition: ICU, prognosis guarded Subjective Date/time seen: No new complains, she seems confused and still dyspneic. 01/19/20 15:52 Exam Narrative: Exam Narrative: General: Pt is frail cachectic , alert and awake Lungs/Chest: No crackles or wheezing. tachypneic but no severe respiratory distress Cardiac: RRR. Normal S1 S2. No murmurs Abdomen: Normal bowel sounds.. Soft. NT. ND. Extremities: No clubbing, cyanosis or edema. Warm : Samaniego in place Neurologic: . Moves all 4 extremities , no obvious focal deficits , does not follow commands. Skin: No Rash Objective Data Vital Signs Vital Signs: Vital Signs - 24 hr 01/18/20 16:00 01/18/20 18:00 01/18/20 20:00 Temperature 98.1 F 97.5 F L Pulse Rate 109 H 106 H 134 H Respiratory Rate 31 H 37 H 27 H Blood Pressure 142/84 H 165/86 H 166/115 H Pulse Oximetry 94 95 27 L 01/18/20 20:01 01/18/20 20:32 01/18/20 20:39 Temperature Pulse Rate 121 H 130 H 110 H Respiratory Rate 27 H 39 H Blood Pressure Pulse Oximetry 97 95 01/18/20 22:00 01/18/20 23:30 01/18/20 23:40 Temperature Pulse Rate 110 H 115 H 115 H Respiratory Rate 32 H 32 H Blood Pressure 158/91 H 143/94 H Pulse Oximetry 97 97 01/19/20 00:00 01/19/20 02:00 01/19/20 03:26 Temperature 97.8 F Pulse Rate 109 H 105 H 104 H Respiratory Rate 35 H 32 H 33 H Blood Pressure 150/80 H 139/86 Pulse Oximetry 94 96 94 01/19/20 04:00 01/19/20 04:50 01/19/20 06:00 Temperature 97.7 F Pulse Rate 100 114 H 114 H Respiratory Rate 36 H 32 H Blood Pressure 151/82 H 173/94 H 122/85 Pulse Oximetry 93 91 01/19/20 07:44 01/19/20 07:51 01/19/20 08:00 Temperature 97.6 F Pulse Rate 111 H 112 H 110 H Respiratory Rate 34 H 38 H Blood Pressure 157/98 H 144/88 H Pulse Oximetry 93 91 01/19/20 09:57 01/19/20 10:00 01/19/20 11:30 Temperature Pulse Rate 104 H 113 H 117 H Respiratory Rate 37 H 45 H Blood Pressure 152/94 H Pulse Oximetry 90 95 01/19/20 12:00 01/19/20 12:14 01/19/20 13:45 Temperature 97.8 F Pulse Rate 117 H 126 H 102 H Respiratory Rate 39 H Blood Pressure 173/93 H 139/89 Pulse Oximetry 93 01/19/20 14:00 Temperature Pulse Rate 95 Respiratory Rate 37 H Blood Pressure 146/77 H Pulse Oximetry 90 Intake/Output Intake/Output: Intake & Output 01/16/20 01/17/20 01/18/20 01/19/20 23:59 23:59 23:59 23:59 Intake Total 1262 520 500 Output Total 1350 300 Balance 1262 -830 200 Meds/Results Medications: Active Medications Generic Name Dose Route Start Last Admin Trade Name Freq PRN Reason Stop Dose Admin Acetaminophen 650 mg 01/17/20 23:27 Acetaminophen 650 Mg Suppository RECTAL Q6H PRN Mild Pain (1-3) or Fever Albuterol 2 puff 01/18/20 11:00 Albuterol Sulfate (*Sp) Inhaler INHALATION QIDRT PRN wheezing Aspirin 300 mg 01/18/20 09:00 01/19/20 07:43 Aspirin 300 Mg Suppository RECTAL 300 mg DAILY CATHY Administratio
[2020-01-19 17:22] LABS: Glucose Point of Care 258 (65-105)
[2020-01-19] MEDS: ALBUTEROL SULFATE (*SP) INHALER 2 PUFF INHALATION (20:38)
[2020-01-19] MEDS: REMDESIVIR 100 MG/NS 250 ML 100 MG/250 ML BAG 250 MG IVPB (23:31)
[2020-01-20] VITALS (16 sets, daily range): BP systolic 111–155; BP diastolic 70–98; PULSE 82–123; RESP 24–48; TEMP 36.3–37; O2SAT 83–99
[2020-01-20 00:36] LABS: Glucose Point of Care 261 (65-105)
[2020-01-20] MEDS: AMIODARONE 360 MG/D5W 200 ML 360 MG/200 ML BAG 16.67 MG IV CONT ×2 (01:10→11:32)
[2020-01-20 04:38] LABS: Hematocrit 39.8 % (37.0-47.0); Hemoglobin 12.9 g/dL (12.0-15.0); Immature Platelet Fraction Pct 11.7 % (0.9-11.2); Mean Corpuscular HGB Conc 32.4 g/dl (32-36); Mean Corpuscular Hemoglobin 27.7 pg (26-34); Mean Corpuscular Volume 85.6 fl (80-100); Mean Platelet Volume 13.6 fl (7.4-10.4); Platelet Count Result 210 k/mm3 (150-375); Red Blood Count 4.65 M/mm3 (4.2-5.4); Red Cell Distribution Width 15.2 % (11.5-14.5); White Blood Count 11.6 K/mm3 (4.5-10.0)
[2020-01-20 04:48] LABS: Alanine Aminotransferase 24 U/L (4-35); Albumin Level 2.6 g/dL (3.5-5.1); Alkaline Phosphatase 136 U/L (38-126); Anion Gap 7 mmol/L (8-16); Aspartate Amino Transferase 72 U/L (14-36); Bilirubin,Total 0.4 mg/dL (0.2-1.3); Blood Urea Nitrogen 32 mg/dL (7-17); Calcium 8.3 mg/dL (8.4-10.2); Carbon Dioxide 28 mmol/L (22-30); Chloride 111 mmol/L (98-107); Estimated CRCL calculation 32 ml/min; Estimated Glomerular Filt Rate 59; Glucose 192 mg/dL (65-105); Magnesium 2.1 mg/dL (1.6-2.3); Sodium 146 mmol/L (137-145)
[2020-01-20] MEDS: PANTOPRAZOLE SODIUM IV 40 MG VIAL IV PUSH (08:04)
[2020-01-20] MEDS: DEXAMETHASONE SOD PHOS INJ 4 MG/ML VIAL 6 MG IV PUSH (08:04)
[2020-01-20] MEDS: ACETAMINOPHEN 650 MG SUPPOSITORY RECTAL (08:04)
[2020-01-20] MEDS: ASPIRIN 300 MG SUPPOSITORY RECTAL (08:05)
[2020-01-20] MEDS: ENOXAPARIN 60 MG/0.6 ML SYRINGE SUB-Q ×2 (08:06→21:15)
--- NOTE | 2020-01-20 09:24 | WPDINTPN ---
Progress Note: A&P Assessment and Plan (1) Acute respiratory failure with hypoxia: Code(s): J96.01 - Acute respiratory failure with hypoxia Status: Acute Assessment and Plan: Acute Respiratory failure secondary to COVID-19 pneumonia, ? pulmonary edema - SARS-CoV-2 PCR positive Patient is in Airborne, Droplet and Contact Isolation CXR shows Diffuse lung disease with interval improvement, consistent with pneumonia and/or pulmonary edema and/or acute respiratory distress syndrome (ARDS). On dexamethasone, remdesivir 1 unit convalscent plasma 01/17 Lasix IV after plasma was given. Patient's BNP is elevated but she appears to be intravascularly volume depleted hence will hold any Lasix at this time. patient was given a small amount of fluid to prevent dehydration Continue antibiotics for empiric bacterial coverage monitor inflammatory markers bronchodilators CTA Chest IMPRESSION: 1. No pulmonary embolus. 2. Diffuse lung disease, consistent with pneumonia. 3. Mild emphysema. 4. Cardiomegaly. 5. 4.6 x 4.1 cm right paratracheal mass. The differential diagnosis includes pathologically enlarged lymph node and bronchogenic cyst. Consider chest MRI without and with contrast. (2) COVID-19: Code(s): U07.1 - COVID-19 Status: Acute Assessment and Plan: see above (3) Atrial fibrillation with RVR: Code(s): I48.91 - Unspecified atrial fibrillation Status: Acute Assessment and Plan: Continue amiodarone drip Will decrease rate 2.5 2D echocardiogram Doppler is pending continue p.r.n. Lopressor patient seen by Cardio (4) Dementia: Code(s): F03.90 - Unspecified dementia without behavioral disturbance Status: Acute Assessment and Plan: Namenda on hold at this time (5) DM (diabetes mellitus): Code(s): E11.9 - Type 2 diabetes mellitus without complications Status: Acute Assessment and Plan: sliding scale add Lantus (6) NSTEMI (non-ST elevated myocardial infarction): Code(s): I21.4 - Non-ST elevation (NSTEMI) myocardial infarction Status: Acute Assessment and Plan: type 2 non STEMI secondary to respiratory failure and atrial fibrillation with RVR patient seen by Cardiology echo pending on Lovenox continue aspirin Additional Plan Diet: NPO, patient had repeat speech eval yesterday. See speech therapy notes for detail. patient did not appear enthusiastic about eating. she did not pass her swallow eval and only ice chips were recommended. DVT prophylaxis: Lovenox 40 mg b.i.d. GI prophylaxis: Protonix IV Code status: patient is DNR DNI as per patient's POA who is her son Scout Lim. Patient overall has poor prognosis. She has dementia, CVA with left hemiparesis, she is unable to follow any commands or participates in her care. She is critically ill with severe respiratory failure. Early this morning bedside nurse spoke to patient's son and he is flying from [place] to see her. He is considering palliative care considering all the factors and patient's current condition. At this time will continue medical therapy showed of intubation or cardiac resuscitation as per patient's wishes Total Critical Care Time - 33 minutes Due to a high probability of clinically significant, life threatening deterioration, the patient required my highest level of preparedness to intervene emergently and I personally spent this critical care time directly and personally managing the patient. This critical care time included obtaining a history; examining the patient; pulse oximetry; ordering and review of studies; arranging urgent treatment with development of a management plan; evaluation of patient's response to treatment; frequent reassessment; and discussions with other providers. It was exclusive of separately billable procedures and treating other patients and teaching time. Please see Assessment and Plan section and the
[2020-01-20] MEDS: INSULIN ASPART (*BKC) 100 UNITS/ML SUB-Q ×2 (11:32→17:43)
[2020-01-20 11:36] LABS: Glucose Point of Care 301 (65-105)
--- NOTE | 2020-01-20 17:39 | PM.IMPN ---
Progress Note: A&P Assessment and Plan (1) Acute UTI: Code(s): N39.0 - Urinary tract infection, site not specified Status: Acute Assessment and Plan: urine culture no growth so far (2) COVID-19: Code(s): U07.1 - COVID-19 Status: Acute Assessment and Plan: 01/20/20 17:39 Patient is 74-year-old female with history of dementia original nursing is positive for COVID-19 and has a COVID pneumonia patient currently in ICU patient is elderly and frail unable to participate in her care patient was started on dexamethasone, remdesivir and convalescent plasma, patient is a DNR DNI, patient prognosis is very poor bin worker spoke with the patient's son once he arrives from out of town patient will be placed under comfort care. unfortunately patient is not able to provide any ROS. (3) Acute respiratory failure with hypoxia: Code(s): J96.01 - Acute respiratory failure with hypoxia Status: Acute Assessment and Plan: patient is DNR DNI unable to wear non rebreathe mask (4) Atrial fibrillation with RVR: Code(s): I48.91 - Unspecified atrial fibrillation Status: Acute Assessment and Plan: rate is controlled (5) Dementia: Code(s): F03.90 - Unspecified dementia without behavioral disturbance Status: Acute Assessment and Plan: unable to provide any review of system Subjective Date/time seen: 01/20/20 17:39 Patient is 74-year-old female with history of dementia original nursing is positive for COVID-19 and has a COVID pneumonia patient currently in ICU patient is elderly and frail unable to participate in her care patient was started on dexamethasone, remdesivir and convalescent plasma, patient is a DNR DNI, patient prognosis is very poor bin worker spoke with the patient's son once he arrives from out of town patient will be placed under comfort care. unfortunately patient is not able to provide any ROS. Review of Systems Review of Systems: ROS unobtainable: Yes unobtainable due to medical condition Exam Narrative: Exam Narrative: elderly frail Patient is comfortable, NAD HEENT: minimal retraction LUNGS: poor respiratory effort ABD: nondistended Lower extremities: no edema SKIN: nonjaundiced Neuro: patient is somnolent. Objective Data Vital Signs Vital Signs: Vital Signs - 24 hr 01/19/20 18:00 01/19/20 18:08 01/19/20 20:00 Temperature 97.9 F Pulse Rate 118 H 115 H 113 H Respiratory Rate 39 H 33 H Blood Pressure 177/122 H 151/85 H Pulse Oximetry 90 93 01/19/20 20:35 01/19/20 22:00 01/20/20 00:00 Temperature 97.4 F L Pulse Rate 100 109 H 102 H Respiratory Rate 29 H 41 H 31 H Blood Pressure 148/96 H 140/82 Pulse Oximetry 96 94 93 01/20/20 01:10 01/20/20 02:00 01/20/20 03:49 Temperature Pulse Rate 98 95 105 H Respiratory Rate 37 H 37 H Blood Pressure 147/98 H 155/91 H Pulse Oximetry 91 90 01/20/20 04:00 01/20/20 06:00 01/20/20 08:00 Temperature 98.6 F 97.6 F Pulse Rate 103 H 122 H 116 H Respiratory Rate 35 H 24 H 37 H Blood Pressure 149/88 H 111/79 147/91 H Pulse Oximetry 92 90 90 01/20/20 08:43 01/20/20 10:00 01/20/20 11:32 Temperature Pulse Rate 113 H 115 H 107 H Respiratory Rate 30 H 36 H Blood Pressure 150/81 H 150/81 H Pulse Oximetry 93 91 01/20/20 12:00 01/20/20 14:00 Temperature 97.7 F Pulse Rate 117 H 120 H Respiratory Rate 39 H 48 H Blood Pressure 144/87 H 115/76 Pulse Oximetry 99 88 L Intake/Output Intake/Output: Intake & Output 01/17/20 01/18/20 01/19/20 01/20/20 23:59 23:59 23:59 23:59 Intake Total 7095 826 5374 400 Output Total 1350 600 350 Balance 1262 -830 400 50 Meds/Results Medications: Active Medications Generic Name Dose Route Start Last Admin Trade Name Freq PRN Reason Stop Dose Admin Acetaminophen 650 mg 01/17/20 23:27 01/20/20 08:04 Acetaminophen 650 Mg Suppository RECTAL 650 mg Q6H PRN Administration
[2020-01-20 17:40] LABS: Glucose Point of Care 373 (65-105)
--- NOTE | 2020-01-20 23:28 | PC.NURSE ---
Pt's son arrived to visit patient, son made the decision to place pt on comfort measures after speaking with pt. Pt's son discussed with Dr. Caldera via telephone what comfort measures would entail.
[2020-01-21] VITALS: BP 149/91; PULSE 83; PULSE 90; RESP 22; RESP 31; TEMP 36.4; O2SAT 64; O2SAT 81
[2020-01-21] MEDS: MORPHINE SULFATE (*CRX) 4 MG/ML INJ IV PUSH ×5 (00:14→09:44)
[2020-01-21] MEDS: LORazepam INJ (*CRX) 2 MG/ML VIAL 1 MG IV PUSH ×2 (00:30→01:20)
[2020-01-21 02:00] VITALS: BP 120/54; PULSE 84; RESP 24; TEMP 36.3; O2SAT 82
--- NOTE | 2020-01-21 02:23 | PC.NURSE ---
Pt transf. to [id number] via bed to Rashad the receiving RN. Pt given Morphine and Ativan prior to leaving floor, pt's son traveled with to new room.
--- NOTE | 2020-01-21 02:53 | PC.NURSE ---
Patient arrived from ICU into room 319 at 2am.
[2020-01-21] MEDS: SCOPOLAMINE 1.5 MG PATCH TRANSDERM (03:58)
[2020-01-21 07:23] LABS: Alanine Aminotransferase 139 U/L (4-35)
[2020-01-21 08:00] VITALS: BP 120/53; PULSE 80; RESP 28; TEMP 36.3; O2SAT 74
[2020-01-21 08:10] VITALS: PULSE 80; RESP 28; O2SAT 74
--- NOTE | 2020-01-21 16:00 | PM.IMPN ---
Progress Note: A&P Assessment and Plan (1) Acute UTI: Code(s): N39.0 - Urinary tract infection, site not specified Status: Acute Assessment and Plan: urine culture no growth so far (2) COVID-19: Code(s): U07.1 - COVID-19 Status: Acute Assessment and Plan: 01/21/20 16:00 Patient is 74-year-old female with history of dementia resident of skilled nursing is positive for COVID-19 and has a COVID pneumonia patient was in ICU patient is elderly and frail unable to participate in her care patient was started on dexamethasone, remdesivir and convalescent plasma, patient is a DNR DNI, patient prognosis is very poor supervisor residential spoke with the patient's son, who was allowed to visit patient on 01/[address] the patient under comfort care and withdraw of care. currently patient on medical floor, patient is lying in the bed unable to provide review of symptom. will continue to monitor and further recommendation to follow (3) Acute respiratory failure with hypoxia: Code(s): J96.01 - Acute respiratory failure with hypoxia Status: Acute Assessment and Plan: patient is DNR DNI unable to wear non rebreathe mask (4) Atrial fibrillation with RVR: Code(s): I48.91 - Unspecified atrial fibrillation Status: Acute Assessment and Plan: rate is controlled (5) Dementia: Code(s): F03.90 - Unspecified dementia without behavioral disturbance Status: Acute Assessment and Plan: unable to provide any review of system Subjective Date/time seen: 01/21/20 16:00 Patient is 74-year-old female with history of dementia resident of skilled nursing is positive for COVID-19 and has a COVID pneumonia patient was in ICU patient is elderly and frail unable to participate in her care patient was started on dexamethasone, remdesivir and convalescent plasma, patient is a DNR DNI, patient prognosis is very poor supervisor residential spoke with the patient's son, who was allowed to visit patient on 01/[address] the patient under comfort care and withdraw of care. currently patient on medical floor, patient is lying in the bed unable to provide review of symptom. Review of Systems Review of Systems: ROS unobtainable: Yes unobtainable due to medical condition Exam Narrative: Exam Narrative: elderly frail Patient is comfortable, NAD HEENT: minimal retraction LUNGS: poor respiratory effort ABD: nondistended Lower extremities: no edema SKIN: nonjaundiced Neuro: patient is somnolent. Objective Data Vital Signs Vital Signs: Vital Signs - 24 hr 01/20/20 18:00 01/20/20 20:00 01/20/20 22:00 Temperature 97.8 F Pulse Rate 87 85 88 Respiratory Rate 27 H 38 H 46 H Blood Pressure 144/70 H 126/75 152/70 H Pulse Oximetry 93 92 83 L 01/21/20 00:00 01/21/20 02:00 01/21/20 08:00 Temperature 97.6 F 97.4 F L 97.4 F L Pulse Rate 90 84 80 Respiratory Rate 22 H 24 H 28 H Blood Pressure 149/91 H 120/54 L 120/53 L Pulse Oximetry 81 L 82 L 74 L Intake/Output Intake/Output: Intake & Output 01/18/20 01/19/20 01/20/20 01/21/20 23:59 23:59 23:59 23:59 Intake Total 520 1000 450 Output Total 1350 600 650 250 Balance -830 400 -200 -250 Meds/Results Medications: Active Medications Generic Name Dose Route Start Last Admin Trade Name Freq PRN Reason Stop Dose Admin Lorazepam 1 mg 01/20/20 23:11 01/21/20 01:20 Lorazepam Inj (*Crx) 2 Mg/Ml Vial IV PUSH 1 mg Q1HR PRN Administration Anxiety Morphine Sulfate 2 - 4 mg 01/20/20 23:07 01/21/20 09:44 Morphine Sulfate (*Crx) 4 Mg/Ml Inj IV PUSH 01/26/20 23:59 4 mg Q30M PRN Administration Agitation Scopolamine 1.5 mg 01/20/20 23:20 01/21/20 03:58 Scopolamine 1.5 Mg Patch TRANSDERM 1.5 mg Q72HR CATHY Administration Radiology Results: ITS Impressions Chest CTA 01/17/20 17:34 IMPRESSION: 1. No pulmonary embolus. 2. Diffuse lung disease, consistent with pneumonia. 3. Mild
[2020-01-21 20:00] VITALS: BP 141/69; PULSE 91; RESP 25; TEMP 36.7; O2SAT 77
--- NOTE | 2020-01-22 11:38 | PCNFU ---
Nutrition Follow-Up Complete: Inadequate oral intake related to altered mental status as evidenced by NPO diet with SENIOR [employer]MWARE ENGINEER consult. Goal: Patient to meet estimated nutritional needs. Limited progress with goal. We will continue current goal. Pt current nutrition is NPO. Nutrition recommendation:Agree Last recorded weight is 56.5 kg down from admit weight 58.3 kg. Bowel Motility:NO reported BM. Labs Reviewed:Glu 192,Na 146, Alb 2.6 Meds Noted:No Meds to report. Additional Notes: Nutrition follow up. Spoke with nursing today due to COVID precautions. Patient is not waking ,currently on comfort care. She is NPO for this reason. Nursing states care coordination is planning to speak with physician regarding hospice consult. Monitoring: Follow up every 3 days.
[2020-01-22 11:54] VITALS: BP 130/60; PULSE 102; RESP 20; TEMP 36.8; O2SAT 75
[2020-01-22] MEDS: MORPHINE SULFATE (*CRX) 2 MG/ML INJ IV PUSH (12:28)
[2020-01-22 14:10] VITALS: O2SAT 82
--- NOTE | 2020-01-22 17:36 | PC.NURSE ---
Patient at 1600 01/22/20. Iv's and adame removed. Patient placed in morgue cooler.
--- NOTE | 2020-01-22 17:44 | P.DN_ITS ---
Discharge Sum: Prov Provider Primary care physician: Arsenio Welsh MD Admitting provider: Bob Ortega MD Discharge Sum: Summary Date and Time Date of admission: 01/17/20 15:11 Date of : 01/22/20 Time of : 16:00 Summary Details: Patient is 74-year-old female with history of dementia resident of [facility] is positive for COVID-19 and has a COVID pneumonia patient was in ICU patient is elderly and frail unable to participate in her care patient was started on dexamethasone, remdesivir and convalescent plasma, patient is a DNR DNI, patient prognosis is very poor network diagnostic support specialist spoke with the patient's son, who was allowed to visit patient on 01/[address] the patient under comfort care and withdraw of care. currently patient on medical floor, patient is lying in the bed unable to provide review of symptom. will continue to monitor and further recommendation to follow, patient on 01/22/2020 at 16:00 Additional Data Confirmation of as documented by pronouncing clinician: no pulse, no respirations, no heart sounds and pupils fixed and dilated Family: not available Attending/PCP notified?: Yes Attending physician: Bob Ortega MD Was code activated?: No Autopsy requested?: No soft work wrapper examiner notified?: Yes Organ bank notified?: Yes Advance directives: No Hospice patient?: No
== END 2020-01-22 16:00 | disposition expired | DRG 177 ==
LOC: ANHED 13:48 → ANH3MEDSUR 15:00 → ANHICU 22:35 → ANH3MEDSUR 01-24 13:44 → ANHICU 01-24 13:44
PROVIDERS: Internal Medicine; Student in an Organized Health Care Education/Training Program; Admitting Provider Internal Medicine; Emergency Provider Emergency Medicine; PCP Emergency Medicine; Visit Provider Family Medicine
DX: U07.1 COVID-19 (principal); J12.89 Other viral pneumonia; J96.01 Acute respiratory failure with hypoxia; I21.A1 Myocardial infarction type 2; I69.351 Hemiplegia and hemiparesis following cerebral infarction affecting right dominant side; R64 Cachexia; I48.91 Unspecified atrial fibrillation; F03.90 Unspecified dementia, unspecified severity, without behavioral disturbance, psychotic disturbance, mood disturbance, and anxiety; K21.9 Gastro-esophageal reflux disease without esophagitis; I73.9 Peripheral vascular disease, unspecified; I25.10 Atherosclerotic heart disease of native coronary artery without angina pectoris; I69.391 Dysphagia following cerebral infarction; R13.10 Dysphagia, unspecified; E11.9 Type 2 diabetes mellitus without complications; D64.9 Anemia, unspecified; I10 Essential (primary) hypertension; Z68.22 Body mass index [BMI] 22.0-22.9, adult; Z66 Do not resuscitate
CPT/HCPCS: 36415; 36430; 36600; 51701; 71045; 71275; 80048; 80053; 81001; 82375; 82728; 82805; 83036; 83050; 83605; 83615; 83735; 83880; 84460; 84484; 85025; 85027; 85055; 85610; 85730; 86140; 86900; 86901; 87040; 87086; 92610; 93005; 94640; 96365; 96366; 96367; 96375; 99291; A9270; C9113; G0378; J0131; J0282; J0696; J1100; J1650; J1815; J1940; J2060; J2270; J3480; J7030; J7060; P9059; Q9967